=== PATIENT | female | born 2000 | race Caucasian/White ===

== ENCOUNTER → 2025-05-01 14:29 | Outpatient (REF) | payer OTHER, SELFPAY | LOC: RAD 14:29 | PROVIDERS: ATTENDING PHYSICIAN Nurse Practitioner Adult Health | DX: M54.42 Lumbago with sciatica, left side (principal) | CPT/HCPCS: 72110 ==

== ENCOUNTER → 2025-10-08 13:54 | Outpatient (REF) | payer OTHER, SELFPAY | LOC: HWRAD 13:54 | PROVIDERS: FAMILY PHYSICIAN Nurse Practitioner Adult Health | DX: N94.12 Deep dyspareunia (principal) | CPT/HCPCS: 76830; 76856 ==